=== PATIENT | female | born 1950 | race Caucasian/White ===

== ENCOUNTER 2017-03-29 12:09 | Inpatient (IN) | payer OTHER, BC ==
[~2017-03-29] VITALS: Ht 162.6 cm; Wt 59.0 kg
[2017-03-29 12:10] VITALS: BP_SYST 199
[2017-03-29] MEDS ORDERED: METOPROLOL TARTRATE 5 MG/5 ML VIAL IVP ONE (12:30)
[2017-03-29 13:01] LABS: BASOPHILS # (AUTO) 0.1 K/uL (0.0-0.2); BASOPHILS % (AUTO) 1.2 % (0.0-2.0); EOSINOPHILS % (AUTO) 0.9 % (0.0-4.0); HEMATOCRIT 45.2 % (36-48); HEMOGLOBIN 14.8 g/dL (12.0-16.0); LYMPHOCYTES # (AUTO) 1.5 K/uL (1.0-5.5); LYMPHOCYTES % (AUTO) 27.4 % (20.5-51.5); MEAN CORPUSCULAR HEMOGLOBIN 33 pg (27-31); MEAN CORPUSCULAR HGB CONC 33 % (32-36); MEAN CORPUSCULAR VOLUME 102 fL (79.0-98.0); MONOCYTES # (AUTO) 0.2 K/uL (0.0-1.0); MONOCYTES % (AUTO) 4.5 % (1.7-9.3); NEUTROPHILS # (AUTO) 3.5 K/uL (1.8-7.7); PLATELET COUNT (AUTO) 200 K/uL (130-430); RED BLOOD CELL COUNT(AUTO) 4.43 MIL/uL (4.2-6.2); RED CELL DISTRIBUTION WIDTH 12.8 % (9.0-15.0); WHITE BLOOD COUNT (AUTO) 5.3 K/uL (4.8-10.8)
[2017-03-29 13:02] LABS: BILIRUBIN,URINE NEGATIVE (NEGATIVE); BLOOD, URINE NEGATIVE (NEGATIVE); CALCIUM 9.9 mg/dL (8.4-11.0); CLARITY/URINE CLEAR (CLEAR); COLOR,URINE YELLOW (YELLOW); CREATININE 1.09 mg/dL (0.55-1.30); GLUCOSE,URINE NEGATIVE (NEGATIVE); KETONES,URINE NEGATIVE (NEGATIVE); LEUKOCYTE ESTERASE ,URINE 1+ (NEGATIVE); NITRITE, URINE NEGATIVE (NEGATIVE); PROTEIN URINE NEGATIVE (NEGATIVE); UROBILINOGEN,URINE 0.2 (0.2-1.0)
[2017-03-29 13:06] LABS: ALBUMIN 4.8 g/dL (3.4-4.8); TOTAL BILIRUBIN 0.7 mg/dL (0.0-1.0)
[2017-03-29 13:14] LABS: INR 1.1 (0.8-1.2); PROTHROMBIN TIME 11.7 SECS (9.5-12.5)
[2017-03-29 13:23] LABS: BACTERIA,URINE FEW /HPF (None Seen); RBC,URINE 0-3 /HPF (0-3)
[2017-03-29] MEDS ORDERED: LISI40TA4 PO (14:13)
[2017-03-29 15:34] VITALS: BP_SYST 159
[2017-03-29] MEDS ORDERED: METOPROLOL SUCCINATE 25 MG TAB.SR.24H (TOPROL XL) PO ONE (17:15)
[2017-03-29 19:00] VITALS: BP_SYST 182
[2017-03-29 20:00] VITALS: BP_SYST 182
[2017-03-29] MEDS: cloNIDine HCL 0.1 MG TABLET PO PRN (21:47)
[2017-03-29] MEDS: ALPRAZolam 0.25 MG TABLET PO PRN (21:48)
[2017-03-30] VITALS: BP_SYST 122
[2017-03-30 04:00] VITALS: BP_SYST 116
[2017-03-30 08:41] VITALS: BP_SYST 136
[2017-03-30] MEDS ORDERED: ATORVASTATIN 20 MG TABLET PO SCH (09:00)
[2017-03-30] MEDS: LISINOPRIL 20 MG TABLET PO SCH (09:18)
[2017-03-30] MEDS: EZETIMIBE 10 MG TABLET PO SCH (09:18)
[2017-03-30] MEDS: METOPROLOL SUCCINATE 25 MG TAB.SR.24H (TOPROL XL) PO SCH (09:19)
[2017-03-30] MEDS: ACETAMINOPHEN 325 MG TABLET PO PRN ×2 (10:03→18:56)
[2017-03-30] MEDS ORDERED: cefTRIAXone 1 GM IVPB PREMIX 50 ML IV SCH (11:30)
[2017-03-30 12:04] VITALS: BP_SYST 151
[2017-03-30 16:02] VITALS: BP_SYST 155
[2017-03-30 19:15] VITALS: BP_SYST 166
[2017-03-30] MEDS: cloNIDine HCL 0.1 MG TABLET PO PRN (21:06)
[2017-03-30] MEDS: ALPRAZolam 0.25 MG TABLET PO PRN (21:06)
[2017-03-31] VITALS: BP_SYST 160
[2017-03-31 04:00] VITALS: BP_SYST 151
[2017-03-31 08:00] VITALS: BP_SYST 121
[2017-03-31] MEDS ORDERED: CHLORTHALIDONE 25 MG TABLET (HYGROTON) PO SCH (09:15)
[2017-03-31] MEDS: LISINOPRIL 20 MG TABLET PO SCH (09:36)
[2017-03-31] MEDS: EZETIMIBE 10 MG TABLET PO SCH (09:37)
[2017-03-31] MEDS: METOPROLOL SUCCINATE 25 MG TAB.SR.24H (TOPROL XL) PO SCH (09:37)
[2017-03-31] MEDS ORDERED: EZET10TA PO (11:17)
[2017-03-31] MEDS ORDERED: METO25TA3 PO (11:17)
[2017-03-31] MEDS ORDERED: ASPI-1063 PO (11:18)
[2017-03-31 11:41] VITALS: BP_SYST 121
[2017-03-31 12:00] VITALS: BP_SYST 139; BP_SYST 154
== END 2017-03-31 12:30 | disposition home or self-care (01) | DRG 305 ==
LOC: SED 12:09 → STU 13:46
PROVIDERS: ADMIT Internal Medicine Hospice and Palliative Medicine; ATTEND Internal Medicine Hospice and Palliative Medicine
DX: I16.0 Hypertensive urgency (principal); E78.5 Hyperlipidemia, unspecified; I34.1 Nonrheumatic mitral (valve) prolapse; I49.1 Atrial premature depolarization; I49.9 Cardiac arrhythmia, unspecified; I49.3 Ventricular premature depolarization; F41.9 Anxiety disorder, unspecified; Z79.899 Other long term (current) drug therapy; Z82.49 Family history of ischemic heart disease and other diseases of the circulatory system; Z88.5 Allergy status to narcotic agent; Z88.2 Allergy status to sulfonamides; Z80.9 Family history of malignant neoplasm, unspecified; Z84.89 Family history of other specified conditions; Z88.8 Allergy status to other drugs, medicaments and biological substances
CPT/HCPCS: 36415; 71010; 80053; 80061; 81000-TC; 83880; 84484; 85025; 85610-TC; 85730-TC; 93005; 93306; 96374; 99285; J0696; J3490

== ENCOUNTER 2017-04-04 01:23 | Inpatient (IN) | payer OTHER, BC ==
[~2017-04-04] VITALS: Ht 162.6 cm; Wt 61.2 kg
[2017-04-04] VITALS (7 sets, daily range): BP systolic 110–184
[~2017-04-04 01:23] MED LIST: ASPI-1063 PO; EZET10TA PO; LISI40TA4 PO; METO25TA3 PO
--- NOTE | 2017-04-04 01:25 | NUR ---
Placed in room 8 . Placed on cardiac care unit nurse, blood pressure machine and pulse oximeter. To gown for exam. Side rails up. Report given to Gail BOYER.
--- NOTE | 2017-04-04 01:27 | NUR ---
Patient brought in by reports having chest pressure starting last night around 2029. Patients states that she "had some PVCs" and her blood pressure was very high, in the 200s. Denies any pain or shortness of breath. Patient is ALOC x 4. No other complaints/injuries per patient or as noted. Will continue to monitor.
--- NOTE | 2017-04-04 01:28 | NUR ---
Dr. Littlejohn at bedside.
[2017-04-04] MEDS ORDERED: NACL 0.9% 1,000 ML IV ONE (01:36)
[2017-04-04] MEDS ORDERED: cloNIDine HCL 0.1 MG TABLET PO ONE (01:45)
[2017-04-04] MEDS ORDERED: LORazepam 2 MG/ML VIAL (FOR ER USE) IVP ONE (01:45)
[2017-04-04] MEDS ORDERED: ASPIRIN 81 MG TAB.CHEW PO ONE (01:45)
[2017-04-04 02:01] LABS: BASOPHILS # (AUTO) 0.1 K/uL (0.0-0.2); BASOPHILS % (AUTO) 1.4 % (0.0-2.0); EOSINOPHILS # (AUTO) 0.1 K/uL (0.0-0.4); EOSINOPHILS % (AUTO) 1.6 % (0.0-4.0); HEMATOCRIT 47.4 % (36-48); HEMOGLOBIN 15.6 g/dL (12.0-16.0); LYMPHOCYTES # (AUTO) 2.6 K/uL (1.0-5.5); LYMPHOCYTES % (AUTO) 37.7 % (20.5-51.5); MEAN CORPUSCULAR HEMOGLOBIN 34 pg (27-31); MEAN CORPUSCULAR HGB CONC 33 % (32-36); MEAN CORPUSCULAR VOLUME 102 fL (79.0-98.0); MONOCYTES # (AUTO) 0.6 K/uL (0.0-1.0); MONOCYTES % (AUTO) 8.2 % (1.7-9.3); NEUTROPHILS # (AUTO) 3.4 K/uL (1.8-7.7); NEUTROPHILS % (AUTO) 51.1 % (40.0-70.0); PLATELET COUNT (AUTO) 200 K/uL (130-430); RED BLOOD CELL COUNT(AUTO) 4.66 MIL/uL (4.2-6.2); RED CELL DISTRIBUTION WIDTH 12.6 % (9.0-15.0); WHITE BLOOD COUNT (AUTO) 6.8 K/uL (4.8-10.8)
[2017-04-04 02:09] LABS: ANION GAP 14 (5-15); CALCIUM 9.5 mg/dL (8.4-11.0); CHLORIDE 100 mmol/L (98-107); CREATININE 1.08 mg/dL (0.55-1.30); GLUCOSE 113 mg/dL (70-99); POTASSIUM 3.7 mmol/L (3.5-5.1); SODIUM SERUM 139 mmol/L (136-145); UREA NITROGEN, BLOOD 24 mg/dL (8-21)
[2017-04-04] MEDS ORDERED: cloNIDine HCL 0.1 MG TABLET ONE (02:10)
[2017-04-04 02:14] LABS: GFR AFRICAN AMERICAN 65 mL/min (>90)
[2017-04-04 02:15] LABS: INR 1.1 (0.8-1.2); PROTHROMBIN TIME 11.6 SECS (9.5-12.5)
[2017-04-04 02:18] LABS: ALANINE AMINOTRANSFERASE 24 U/L (12-78); ALBUMIN 4.6 g/dL (3.4-4.8); ASPARTATE AMINOTRANSFERASE 25 U/L (10-37); TOTAL BILIRUBIN 0.4 mg/dL (0.0-1.0); TOTAL PROTEIN, SERUM 7.9 g/dL (6.4-8.3)
[2017-04-04] MEDS ORDERED: cloNIDine HCL 0.1 MG TABLET PO PRN (02:45)
--- NOTE | 2017-04-04 03:14 | NUR ---
Note himanshu in EDM - 04/04/17 at 0322 by [email or web address] aPatient will be admitted to care of Dr. Ca. Admitted to Telemetry unit. Will go to room 100B. Belongings list completed. Summary report printed. Report will be given at bedside to MERLIN Hunter.
--- NOTE | 2017-04-04 03:14 | NUR ---
ADMIT NOTE Received pt from ER to the floor with a diagnosis of accelerated hypertension. Admission process initiated. patient oriented to pain management, safety and call light-teach back done.
--- NOTE | 2017-04-04 03:15 | NUR ---
INITIAL NOTES; -Pt arrived from ER dept via a gurney to room 100-B,dx accelerated HTN inpt telemetry. Pt is lethargic, but alerted,oriented. Spouse is at bedside, gathering information from spouse. Vital sign 97.4,18, 119/69,78,u7cmv=82% r/a. IV site of rt a/c #20,patent,drsg cdi. Pt arrived to the floor unit with infusing NS bag. Skin intact. Discussed poc,all safety measures, and instructed not to get out bed by self to use call light for assistance, spouse and pt verbalized understanding. Fall precaution in place. Bed alarm in place, bed low position, side rails x3. Call light w/in reach. Continue to monitor pt.
--- NOTE | 2017-04-04 04:38 | NUR ---
ROUNDS; -Pt is resting. No s/s any pain,sob,or any acute distress. Fall precaution in place. Bed alarm in place, bed low position, side rails x3. Call light w/in reach. Continue to monitor pt.
--- NOTE | 2017-04-04 06:32 | NUR ---
ROUNDS; -Pt is resting. No s/s any pain,sob,or any acute distress. NS infusing. No s/s any infiltration noted. Fall precaution in place. Bed alarm in place, bed low position, side rails x3. Call light w/in reach. Continue to monitor pt.
--- NOTE | 2017-04-04 07:01 | NUR ---
CLOSING NOTES; -Pt awakes upon arriving at bedside. Pt denies any pain,sob,or any acute distress. IV site of rt a/c patent, no s/s any infiltration noted. Fall precaution in place. Bed alarm in place, bed low position, side rails x3. Call light w/in reach. Endorsed to Jennifer to continue care.
--- NOTE | 2017-04-04 07:59 | NUR ---
OPENING NOTE: PT RESTING IN BED WITH HOB ELEVATED. AAOX4. NO ACUTE RESPIRATORY DISTRESS NO SOB. DENIES CHEST PAIN, PALPITATIONS. SKIN WARM DRY AND COLOR NORMAL FOR ETHNICITY. BLOOD PRESSURE WNL. IV INTACT. ALL NEEDS MET. CONTINUE TO MONITOR.
--- NOTE | 2017-04-04 10:00 | NUR ---
ROUNDING: PT RESTING IN BED COMFORTABLY. NO ACUTE SIGNS OF RESPIRATORY DISTRESS. DENIES CHEST PAIN, SOB, PALPITATIONS, NUMBNESS, TINGLING. SKIN WARM DRY AND COLOR NORMAL FOR ETHNICITY. IV INTACT, NO REDNESS/SWELLING, NO ACTIVE BLEEDING. ALL NEEDS MET. BED AT LOWEST POSITION, CALL LIGHT IN REACH. CONTINUE TO MONITOR.
--- NOTE | 2017-04-04 10:11 | NUR ---
Nutrition Update Jax Scale 18 noted. Pt admitted for accelerated HTN. Diet: cardiac BMI: 23.2 kg/m2 RD to follow per nutrition care standards.
[2017-04-04] MEDS ORDERED: ZOLPIDEM TARTRATE 5 MG TABLET PO PRN (11:15)
[2017-04-04] MEDS ORDERED: LORazepam 2 MG/ML VIAL IVP PRN (11:15)
[2017-04-04] MEDS ORDERED: MORPHINE 2 MG/ML INJ. SYRINGE IVP PRN (11:15)
[2017-04-04] MEDS ORDERED: MAGNESIUM SULFATE 50 ML IV PRN (11:15)
[2017-04-04] MEDS ORDERED: DOCUSATE SODIUM 100 MG CAPSULE PO PRN (11:15)
[2017-04-04] MEDS ORDERED: ONDANSETRON HCL 4 MG/2 ML VIAL IVP PRN (11:15)
[2017-04-04] MEDS ORDERED: POTASSIUM CHLORIDE 10 MEQ TAB.PRT.SR PO PRN (11:15)
[2017-04-04] MEDS ORDERED: ACETAMINOPHEN 325 MG TABLET PO PRN (11:15)
--- NOTE | 2017-04-04 12:41 | NUR ---
ROUNDING: PT RESTING COMFORTABLY IN BED. DENIES CHEST PAIN, SOB, PALPITATIONS. NO NOTABLE SIGNS OF ACUTE RESPIRATORY DISTRESS. IV INTACT, PATENT, NO REDNESS/SWELLING. SAFETY PRECAUTIONS IN PLACE WITH BED AT LOWEST POSITION, CALL LIGHT IN REACH, SIDE RAILS X3. RE-ENFORCED EDUCATION TO CALL PRIOR TO GETTING UP. CONTINUE TO MONITOR.
--- NOTE | 2017-04-04 14:08 | NUR ---
ROUNDING: PT RESTING IN BED COMFORTABLE. NO ACUTE RESPIRATORY DISTRESS NOTED. IV INTACT AND PATENT. DENIES CHEST PAIN, DIZZINESS, LIGHTHEADED, PALPITATIONS. ALL NEEDS MET. RE-ENFORCED TEACHING IN REGARDS TO CALLING PRIOR TO GETTING UP. PT VERBALIZED UNDERSTANDING. CONTINUE TO MONITOR.
--- NOTE | 2017-04-04 15:52 | NUR ---
ROUNDING: PT RESTING IN BED WATCHING TV. DENIES CHEST PAIN, SOB, DIZZINESS, LIGHTHEADED. NO ACUTE SIGNS OF RESPIRATORY DISTRESS. IV INTACT. RELAY ENGINEER IN TACT. UPDATED PATIENT WITH PLAN OF CARE. CALL LIGHT ON HAND, BED AT LOWEST POSITION, SIDE RAILS X3, RE-ENFORCED EDUCATION TO CALL PRIOR TO GETTING UP.
--- NOTE | 2017-04-04 16:29 | NUR ---
CARDIOLOGY CONSULT, DR MUNGUIA ULTRASOUND TECH FOR DR PORRAS NOTIFIED BY EUGENIA RE: ACCELERATED HYPERTENSION
--- NOTE | 2017-04-04 17:35 | NUR ---
ROUNDING: PT SITTING UP IN BED WATCHING TV. NO ACUTE SIGNS OF RESPIRATORY DISTRESS. DENIES DIZZINESS, LIGHTHEADED, CHEST PAIN, SOB. IV INTACT. BED AT LOWEST POSITION, CALL LIGHT IN REACH. RE-ENFORCED TEACHING TO CALL PRIOR TO GETTING UP.
--- NOTE | 2017-04-04 18:27 | NUR ---
CLOSING NOTE: PT LAYING IN BED ON CELLPHONE. AAOX4. NO NOTABLE SIGNS OF ACUTE RESPIRATORY DISTRESS, NO SOB. PT IS ON ROOM AIR. SKIN WARM DRY AND COLOR NORMAL FOR ETHNICITY. PT DENIES CHEST PAIN, DIZZINESS, LIGHTHEADED. IV INTACT AND PATENT, NO SIGNS OF REDNESS/SWELLING. ALL NEEDS MET. SAFETY PRECAUTIONS IN PLACE, CALL LIGHT ON LAP, BED AT LOWEST POSITION. RE-ENFORCED TEACHING TO CALL PRIOR TO GETTING UP. WILL ENDORSE TO MERLIN ALLAN.
--- NOTE | 2017-04-04 19:35 | NUR ---
Initial Notes Patient is A/Ox4. Pt is pleasant and cooperative. No acute distress or sob noted. Pt denies any pain or sob. Breathing is even and unlabored. VSS. IV intact, saline lock. VSS. Pt is Sinus Rhythm on tele monitor. Plan of care discussed with pt, pt verbalized understanding. Will reinforce teaching as needed. Pt educated regarding call light and correct back demonstration noted. Safety measures in place, side rails up x2 with bed in lowest, locked position, bed alarm on at all times. All needs met at this time. Call light in hand. Will continue to monitor.
[2017-04-04] MEDS: HEPARIN SODIUM,PORCINE 5000 UNITS/ML VIAL SUBCUT SCH (20:18)
--- NOTE | 2017-04-04 23:07 | NUR ---
Rounds Pt is sleeping safely in bed at this time. No acute distress or sob noted. Call light in reach. Will continue to monitor.
[2017-04-05 00:15] VITALS: BP_SYST 133
--- NOTE | 2017-04-05 02:00 | NUR ---
Rounds Pt is sleeping comfortably in bed with no acute distress or sob noted. All needs met. Call light in hand. Will continue to monitor.
--- NOTE | 2017-04-05 03:49 | NUR ---
Rounds Pt is sleeping comfortably in bed at this time. No acute distress or sob noted. Call light in reach. Will continue to monitor.
[2017-04-05 04:18] VITALS: BP_SYST 143
[2017-04-05 06:24] LABS: BASOPHILS % (AUTO) 0.7 % (0.0-2.0); EOSINOPHILS # (AUTO) 0.1 K/uL (0.0-0.4); EOSINOPHILS % (AUTO) 1.8 % (0.0-4.0); HEMATOCRIT 40.4 % (36-48); HEMOGLOBIN 13.3 g/dL (12.0-16.0); LYMPHOCYTES # (AUTO) 2.1 K/uL (1.0-5.5); LYMPHOCYTES % (AUTO) 40.4 % (20.5-51.5); MEAN CORPUSCULAR HEMOGLOBIN 33 pg (27-31); MEAN CORPUSCULAR HGB CONC 33 % (32-36); MEAN CORPUSCULAR VOLUME 101 fL (79.0-98.0); MONOCYTES # (AUTO) 0.4 K/uL (0.0-1.0); MONOCYTES % (AUTO) 7.3 % (1.7-9.3); NEUTROPHILS # (AUTO) 2.6 K/uL (1.8-7.7); NEUTROPHILS % (AUTO) 49.8 % (40.0-70.0); PLATELET COUNT (AUTO) 168 K/uL (130-430); RED BLOOD CELL COUNT(AUTO) 3.98 MIL/uL (4.2-6.2); RED CELL DISTRIBUTION WIDTH 12.8 % (9.0-15.0); WHITE BLOOD COUNT (AUTO) 5.2 K/uL (4.8-10.8)
--- NOTE | 2017-04-05 06:30 | NUR ---
Closing Notes Pt is resting in bed quietly. No acute distress or sob noted. Pt denies any pain or n/v. VSS. IV intact. Pt in stable condition. All needs met at this time. Call light in hand. Will endorse care to am Nurse.
[2017-04-05 06:34] LABS: CALCIUM 8.9 mg/dL (8.4-11.0); CREATININE 0.93 mg/dL (0.55-1.30); POTASSIUM 4.4 mmol/L (3.5-5.1)
--- NOTE | 2017-04-05 07:45 | NUR ---
OPENING NOTE: PT SITTING UP IN BED EATING BREAKFAST. AAOX4. NO NOTABLE SIGNS OF RESPIRATORY DISTRESS. PT DENIES CHEST PAIN, CHEST PRESSURE, SOB, DIZZINESS/LIGHTHEADED. PT DENIES PAIN AT THIS TIME. SKIN WARM DRY AND COLOR PINK. VS WNL. ALL NEEDS MET. CONTINUE TO MONITOR.
[2017-04-05 08:00] VITALS: BP_SYST 138
[2017-04-05] MEDS: HEPARIN SODIUM,PORCINE 5000 UNITS/ML VIAL SUBCUT SCH (08:34)
[2017-04-05] MEDS ORDERED: ASPIRIN 81 MG TABLET(ECOTRIN) PO SCH (09:00)
[2017-04-05] MEDS ORDERED: METOPROLOL SUCCINATE 25 MG TAB.SR.24H (TOPROL XL) PO SCH (09:00)
[2017-04-05] MEDS ORDERED: LISINOPRIL 20 MG TABLET PO SCH (09:00)
[2017-04-05] MEDS ORDERED: EZETIMIBE 10 MG TABLET PO SCH (09:00)
--- NOTE | 2017-04-05 10:00 | NUR ---
ROUNDING: PT RESTING IN BED COMFORTABLY. NO NOTABLE SIGNS OF RESPIRATORY DISTRESS. PT DENIES CHEST PAIN, CHEST PRESSURE, SOB, AND LIGHTHEADED/DIZZINESS. SKIN WARM DRY AND COLOR NORMAL FOR ETHNICITY. IV INTACT AND PATENT, NO SIGNS OF BLEEDING, NO REDNESS/SWELLING. AM MEDS GIVEN PER MD ORDERS, PT TOLERATED WELL. ALL NEEDS MET. BED AT LOWEST POSITION, CALL LIGHT IN REACH, SIDE RAILSX3. RE-ENFORCED EDUCATION TO CALL PRIOR TO GETTING UP. CONTINUE TO MONITOR.
[2017-04-05 10:25] VITALS: BP_SYST 129
[2017-04-05] MEDS ORDERED: LISI-600 PO (10:35)
--- NOTE | 2017-04-05 10:55 | NUR ---
D/C Patient Patient given medication reconciliation form and D/C instructions. Exit Care provided. Patient verbalized understanding. MD discussed with patient the results and treatment provided. Ambulatory with steady gait for discharge to home. Patient in stable condition, ID band removed. IV catheter removed, intact and dressing applied, no active bleeding. Patient educated on pain management. All belongings sent with patient. with pt. educated to follow up with PCP. pt verbalized understanding.
== END 2017-04-05 11:05 | disposition home or self-care (01) | DRG 310 ==
LOC: SED 01:23 → STU 02:41
PROVIDERS: ADMIT General Practice; ATTEND General Practice
DX: I49.3 Ventricular premature depolarization (principal); I10 Essential (primary) hypertension; E78.5 Hyperlipidemia, unspecified; F41.9 Anxiety disorder, unspecified; G89.29 Other chronic pain; M54.9 Dorsalgia, unspecified; Z79.899 Other long term (current) drug therapy
CPT/HCPCS: 36415; 71010; 80048; 80053; 83735-TC; 84484; 85025; 85379; 85610-TC; 85730-TC; 87081; 93005; 96374; 99285; J1644; J2060; J7030